=== PATIENT | female | born 1960 | race Caucasian/White ===

== ENCOUNTER 2017-10-28 20:50 | Inpatient (IN) | payer BC ==
[~2017-10-28] VITALS: Ht 157.5 cm; Wt 59.4 kg
[~2017-10-28 20:50] MED LIST: AFINITOR5 MG PO; AROMASIN25 MG PO; B COMPLETE1 EACH PO; BUTALB-CAFF-AC1 EACH PO; CALCIUM 500 MG1 EACH PO; CALCIUM 600 +1 EAC1 PO; CYANOCOBALAM1000 MCG PO; DECADRON2 MG PO; DEXAMETHASONE4 MG PO; ENDOCET 5-3251 EACH PO; FIORICET 50-301 EACH PO; FIORINAL1 TABLET PO; IBRANCE125 MG PO; KEPPRA750 MG PO; LEVETIRACETAM750 MG PO; MAGIC MOUTHWASH1 ML MM; PROMETHAZINE HC25 M1 PO; SENNA8.6 MG PO; SENOKOT S,PE1 TABLET PO; VITAMIN B-12500 MC2 PO; VITAMIN B-6100 MG PO; VITAMIN B-625 MG PO; XELODA500 MG PO; XGEVA120 MG/1.7 SC; ZANTAC75 M1 PO
[2017-10-28 22:00] LABS: BASOPHIL (%) 0.5 % (0-1); EOSINOPHIL (%) 0.5 % (0-5); HEMATOCRIT 31.3 % (36.0-46.0); HEMOGLOBIN 10.1 G/DL (11.9-15.5); IMMATURE GRANULOCYTE (%) 0.3 % (0.0-0.7); LYMPHOCYTE (%) 16.9 % (15-42); MCH 29.4 PG (29.0-34.0); MCHC 32.3 G/DL (30.0-36.0); MCV 91.3 FL (83-99); MONOCYTE (%) 8.1 % (3-12); MONOCYTE COUNT 0.5 K/uL (0-0.8); NEUTROPHIL (%) 73.7 % (45-76); NEUTROPHIL COUNT 4.4 K/uL (1.8-6.4); PLATELET COUNT 345 K/uL (156-360); RBC DIS.WIDTH-CV 17.9 % (11.8-14.6); RBC DIS.WIDTH-SD 60.6 % (39-53); RED BLOOD COUNT 3.43 M/uL (3.80-5.20); WHITE BLOOD COUNT 5.9 K/uL (4.1-10.2)
[2017-10-28 22:09] LABS: CHLORIDE 105 mEq/L (99-109); POTASSIUM 3.6 mEq/L (3.7-5.4); SODIUM 143 mEq/L (136-147)
[2017-10-28 22:11] LABS: GLUCOSE 97 mg/dL (70-99)
[2017-10-28 22:15] LABS: CREATININE 0.8 mg/dL (0.6-1.3); GFR ESTIMATE (CALCULATED) > 59 mL/min/
[2017-10-28 22:16] LABS: UREA NITROGEN (BUN) 10 mg/dL (9-23)
[2017-10-28 22:23] LABS: TROP-I INTERPRETATION NEGATIVE; TROPONIN-I < 0.01 ng/mL (0.0-0.30)
[2017-10-28 22:28] LABS: INTER. NORMALIZED RATIO 1.2
[2017-10-28 22:30] LABS: PTT 32.3 SEC (25-37)
[2017-10-29] MEDS ORDERED: FEMARA2.5 MG PO (00:06)
[2017-10-29] MEDS ORDERED: ADULT ASPIRIN R81 MG PO (00:07)
[2017-10-29] MEDS ORDERED: PRILOSEC OTC20 MG PO (00:12)
[2017-10-29] MEDS ORDERED: ZOFRAN4 MG PO (00:13)
[2017-10-29] MEDS ORDERED: OXYCODONE HCL5 MG PO (00:13)
[2017-10-29 05:25] VITALS: BP 113/53
[2017-10-29 06:49] LABS: INTER. NORMALIZED RATIO 1.3
[2017-10-29 07:10] LABS: PTT 98.2 SEC (25-37)
[2017-10-29 07:11] LABS: TROP-I INTERPRETATION NEGATIVE; TROPONIN-I < 0.01 ng/mL (0.0-0.30)
[2017-10-29 07:45] VITALS: BP 109/59
[2017-10-29 11:40] VITALS: BP 94/51
[2017-10-29 13:47] LABS: TROP-I INTERPRETATION NEGATIVE; TROPONIN-I < 0.01 ng/mL (0.0-0.30)
[2017-10-29 15:37] VITALS: BP 106/53
[2017-10-29 19:26] VITALS: BP 115/57
[2017-10-29 23:44] VITALS: BP 113/56
[2017-10-30 03:54] VITALS: BP 126/56
[2017-10-30 07:05] LABS: HEMOGLOBIN 9.4 G/DL (11.9-15.5); MCH 28.9 PG (29.0-34.0); MCHC 31.3 G/DL (30.0-36.0); MCV 92.3 FL (83-99); PLATELET COUNT 317 K/uL (156-360); RBC DIS.WIDTH-CV 18.2 % (11.8-14.6); RED BLOOD COUNT 3.25 M/uL (3.80-5.20); WHITE BLOOD COUNT 5.3 K/uL (4.1-10.2)
[2017-10-30 07:34] VITALS: BP 89/5
[2017-10-30 08:20] LABS: ALBUMIN 3.4 G/DL (3.2-4.8); ALKALINE PHOSPHATASE 106 IU/L (3-129); ALT (GPT) 46 IU/L (3-49); AST (GOT) 48 IU/L (2-34); CHLORIDE 102 MEQ/L (99-109); CREATININE 0.7 MG/DL (0.6-1.3); GFR ESTIMATE (CALCULATED) > 59 mL/min/; GLUCOSE 87 mg/dL (70-99); POTASSIUM 4.3 MEQ/L (3.7-5.4); SODIUM 143 MEQ/L (136-147); TOTAL BILIRUBIN 0.3 MG/DL (0.0-1.0); TOTAL PROTEIN 5.8 G/DL (6.4-8.3); UREA NITROGEN (BUN) 8 mg/dL (9-23)
[2017-10-30 11:02] VITALS: BP 96/45
[2017-10-30] MEDS ORDERED: XARELTO15 MG PO (14:50)
[2017-10-30 15:41] VITALS: BP 97/46
== END 2017-10-30 15:57 | disposition home or self-care (01) | DRG 176 ==
LOC: EME 20:50 → EDOF 10-29 03:44 → 2EAST 10-29 03:44 → ENRESERV 10-29 04:08 → 2EAST 10-29 05:03
PROVIDERS: Emergency Medicine; Hospitalist
DX: I26.99 Other pulmonary embolism without acute cor pulmonale (principal); C50.919 Malignant neoplasm of unspecified site of unspecified female breast; C79.51 Secondary malignant neoplasm of bone; C79.60 Secondary malignant neoplasm of unspecified ovary; C79.32 Secondary malignant neoplasm of cerebral meninges; C78.5 Secondary malignant neoplasm of large intestine and rectum; C79.31 Secondary malignant neoplasm of brain; Z17.0 Estrogen receptor positive status [ER+]; G40.909 Epilepsy, unspecified, not intractable, without status epilepticus; Z92.21 Personal history of antineoplastic chemotherapy; Z80.3 Family history of malignant neoplasm of breast
CPT/HCPCS: 71045; 71275; 80048; 80053; 84484; 85025; 85027; 85610; 85730; 93005; 99281; 99285; J2405; J3010